=== PATIENT | female | born 1995 | race Two or more races ===

== ENCOUNTER 2016-07-22 14:45 | Emergency (ER) | payer OTHER ==
[2016-07-22] MEDS ORDERED: CEPHALEXIN 500 MG CAPSULE ONE (15:03)
--- NOTE | 2016-07-22 15:29 | RAD ---
FINGER RIGHT COMPARISON: Right thumb 3 views, 08/12/2013 HISTORY: Right thumb injury from a table saw FINDINGS: Views: Right thumb AP, oblique, lateral Bones: The patient has suffered an amputation at the midportion of the distal phalanx of the right thumb. Joints: Normal. Soft tissues: Amputation of the end of the right thumb. 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
== END 2016-07-22 17:27 | disposition home or self-care (01) ==
LOC: ED 14:45
DX: S68.521A Partial traumatic transphalangeal amputation of right thumb, initial encounter (principal); W29.8XXA Contact with other powered hand tools and household machinery, initial encounter; Y93.H3 Activity, building and construction; Y92.69 Other specified industrial and construction area as the place of occurrence of the external cause; Y99.0 Civilian activity done for income or pay
CPT/HCPCS: 73140; 99283 ×2; 64450 ×2; A9270